=== PATIENT | male | born 1990 | race Hispanic/Latino ===

== ENCOUNTER 2017-11-21 22:22 | Emergency (ER) | payer BC, OTHER ==
[~2017-11-21] VITALS: Ht 172.7 cm; Wt 81.6 kg
[2017-11-21] MEDS ORDERED: SODIUM CHLORIDE 0.9% 1000ML 1,000 ML IV STA (23:16)
[2017-11-21 23:30] LABS: BASOPHILS # (AUTO) 0.1 (0.0-0.1); BASOPHILS % 0.9 % (0.0-1.0); EOSINOPHILS # (AUTO) 0.3 (0.0-0.4); EOSINOPHILS % 3.1 % (0.0-6.0); HEMATOCRIT 46.9 % (38.2-49.6); HEMOGLOBIN 15.7 g/dL (14.0-18.0); MEAN CORPUSCULAR HEMOGLOBIN 28.6 pg (28-32); MEAN CORPUSCULAR HGB CONC 33.5 g/dL (31-35); MEAN CORPUSCULAR VOLUME 85.4 fL (81-99); MONOCYTES # (AUTO) 0.7 (0.2-0.8); MONOCYTES % 6.9 % (4.4-11.3); NEUTROPHILS % 58.7 % (38.7-80.0); PLATELET COUNT 239 x10e3/uL (140-360); RED BLOOD COUNT 5.49 x10e6/uL (4.3-5.7); RED CELL DISTRIBUTION WIDTH 12.4 % (11.7-14.4)
[2017-11-21 23:41] LABS: INR 1.01; PROTHROMBIN TIME 12.5 seconds (11.9-14.5)
[2017-11-21 23:42] LABS: PARTIAL THROMBOPLASTIN TIME 30.6 seconds (23.8-35.5)
[2017-11-21 23:49] LABS: ALANINE AMINOTRANSFERASE 69 IU/L (0-55); ALBUMIN 4.2 g/dL (3.5-5.0); ALBUMIN/GLOBULIN RATIO 0.9 (0.8-2.0); ALKALINE PHOSPHATASE 114 IU/L (40-150); ANION GAP 13.9 mmol/L (8-16); BLOOD UREA NITROGEN 12 mg/dL (7-26); BUN/CREATININE RATIO 10 (6-25); CALCIUM 9.1 mg/dL (8.4-10.2); CARBON DIOXIDE 27 mmol/L (22-29); CHLORIDE 104 mmol/L (98-107); CREATINE KINASE 123 IU/L (30-200); CREATININE, SERUM 1.25 mg/dL (0.72-1.25); EST GLOMERULAR FILTRATION RATE > 60 ML/MIN (60-); GLUCOSE 105 mg/dL (74-118); MAGNESIUM 2.1 MG/DL (1.3-2.1); POTASSIUM 3.9 mmol/L (3.5-5.1); SODIUM 141 mmol/L (136-145)
--- NOTE | 2017-11-22 00:03 | Diagnostic Imaging Report ---
CHEST 2 VIEWS, Technique: CHEST 2 VIEWS Comparison: None Clinical history: Tachycardia DISCUSSION: Low lung volumes result in bibasilar vascular crowding/atelectasis. Otherwise normal appearance of the heart, mediastinum, lungs and pleural spaces. IMPRESSION: Low lung volumes without acute abnormality Signed by: Dr Dora Shaffer MD on 11/21/2017 11:59 PM
[2017-11-22 00:09] LABS: THYROID STIMULATING HORMONE 2.613 uIU/mL (0.350-4.940)
[2017-11-22 00:16] LABS: BILIRUBIN,URINE NEGATIVE (NEGATIVE); KETONES,URINE NEGATIVE (NEGATIVE); LEUKOCYTE ESTERASE ,URINE NEGATIVE (NEGATIVE); NITRITE,URINE NEGATIVE (NEGATIVE); PROTEIN,URINE DIPSTICK NEGATIVE (NEGATIVE); URINE UROBILINOGEN 0.2 mg/dL (0.2 - 1)
[2017-11-22 00:17] LABS: CLARITY,URINE CLEAR (CLEAR); COLOR,URINE YELLOW (YELLOW)
[2017-11-22 00:20] LABS: AMPHETAMINES SCREEN,URINE NEGATIVE (NEGATIVE); BENZODIAZEPINES SCREEN,URINE NEGATIVE (NEGATIVE); PHENCYCLIDINE SCREEN,URINE NEGATIVE (NEGATIVE)
[2017-11-22 00:27] LABS: BACTERIA,URINE RARE /HPF; EPITHELIAL CELLS,URINE RARE /LPF; WBC,URINE (MAN) 0-5 /HPF (0-5)
== END 2017-11-22 02:05 | disposition home or self-care (01) ==
LOC: ER 22:22
DX: R00.2 Palpitations (principal)
CPT/HCPCS: 36415; 71046; 80053; 80307; 81001; 82550; 82553; 83735; 83880; 84443; 84484; 85025; 85379; 85610; 85730; 87086; 87400; 93005; 99284; J7030

== ENCOUNTER 2018-02-10 03:21 | Emergency (ER) | payer BC ==
[~2018-02-10] VITALS: Ht 172.7 cm; Wt 81.6 kg
--- OUTSIDE RECORDS SUMMARY | 2018-02-10 03:23 | XMS REPORT ---
[facility] Address Unknown Phone Unavailable Care Team Providers Care Mechanical Designer Name Role Phone JULIA DOWELL Unavailable Unavailable Problems This patient has no known problems. Allergies, Adverse Reactions, Alerts This patient has no known allergies or adverse reactions. Medications This patient has no known medications. Results Test Description Test Time Test Comments Text Results Atomic Results Result Comments CHEST [address] [address] Patient Name: LAWRENCE FROST MR #: [id number] : 1990 Age/Sex: 27/M Req #: [id number] Adm Physician: Ordered by: JULIA DOWELL MD Report #: [id number] Location: ER Room/Bed: Procedure: [id number] DX/CHEST 2 VIEWS Exam Date: 11/21/17 Exam Time: 4 REPORT STATUS: Signed CHEST 2 VIEWS, Technique: CHEST 2 VIEWS Comparison: None Clinical history: Tachycardia DISCUSSION: Low lung volumes result in bibasilar vascular crowding/atelectasis. Otherwise normal appearance of the heart, mediastinum, lungs and pleural spaces. IMPRESSION: Low lung volumes without acute abnormality Signed by: Dr Saige Shaffer MD on 11/21/2017 11:59 PM Dictated By: SAIGE SHAFFER MD [id number] Transcribed By: OJ on 11/21/17 3256 COPY TO: JULIA DOWELL MD
--- OUTSIDE RECORDS SUMMARY | 2018-02-10 03:23 | XMS REPORT | Continuity of Care Document ---
Author Author [facility] Organization [facility] Address [address] [place] [address] Phone Unavailable Care Team Providers Care Social Service Agency Director Name Role Phone JULIETH MCCANN DO PCP Insurance Providers Guarantor Lawrence Warren Address [address] [facility] [facility] [address] [place] [address] Email [email or web address] [facility] Policy Number [id number] Subscriber's Name Lawrence Warren Relationship 18 Self / Same As Patient Advance Directives Directive Response Recorded Date/Time Does the patient have an advance directive? No 06/27/15 9:59am If yes, is advance directive on file with [facility]? No 06/27/15 9:59am If not on file with [facility] will patient provide a copy? Yes 11/22/17 1:45am Do you have a Directive to Physician? No 11/22/17 1:45am Do you have a Medical Power of Well Logging Operator [employer]? No 11/22/17 1:45am Do you have an out of hospital Do Not Resuscitate Order? No 11/22/17 1:45am Do you have any special needs we should be aware of? No 11/22/17 1:45am Do you have a support person here with you today? Yes 11/22/17 1:45am Did patient receive Notice of Privacy Practices? Yes 11/22/17 1:45am Did patient receive patient rights and responsibilities? Yes 11/22/17 1:45am Problems No problem information available. Medications No known medications. Social History Smoking Status Start Date Stop Date Never Smoker Hospital Discharge Instructions No hospital discharge instruction information available. Plan of Care Discharge Date 11/22/17 2:05am Disposition HOME, SELF-CARE Condition at Discharge Stable Instructions/Education Provided Heart Palpitations Forms Provided Work/School Excuse Prescriptions See Medication Section Additional Instructions/Education AVOID STIMULANTS LIKE CAFFEINE AND NICOTINE FOLLOW UP WITH YOUR PRIMARY CARE DOCTOR CALL FOR APPT Functional Status No functional status information available. Allergies, Adverse Reactions, Alerts No known allergies. Immunizations No immunization information available. Vital Signs Acute Vital Signs Vital Response Date/Time Pulse Pulse Rate (adult) 81 bpm (60 - 90) 11/22/2017 1:45am Respiratory Rate 18 bpm (12 - 24) 11/22/2017 1:45am Height 5 ft 8 in 11/21/2017 10:28pm Weight 180 lb 11/21/2017 10:28pm Body Mass Index 27.4 kg/m^2 11/21/2017 10:28pm Results Laboratory Results Test Name Result Units Flags Reference Collection Date/Time Result Date/ Time Comments White Blood Count 10.15 x10e3/uL 4.8-10.8 11/21/2017 11:28pm 2017 11:32pm Red Blood Count 5.49 x10e6/uL 4.3-5.7 11/21/2017 11:28pm 11/21/2017 11: 32pm Hemoglobin 15.7 g/dL 14.0-18.0 11/21/2017 11:2811/21/2017 11:32pm Hematocrit 46.9 % 38.2-49.6 11/21/2017 11:2811/21/2017 11:32pm Mean Corpuscular Volume 85.4 fL 81-99 11/21/2017 11:28pm 11/21/2017 11: 32pm Mean Corpuscular Hemoglobin 28.6 pg 28-32 11/21/2017 11:28pm 2017 11:32pm Mean Corpuscular Hemoglobin Concent 33.5 g/dL 31-35 11/21/2017 11:28pm 11/21/2017 11:32pm Red Cell Distribution Width 12.4 % 11.7-14.4 11/21/2017 11:2017 11:32pm Platelet Count 239 x10e3/uL 140-360 11/21/2017 11:11/21/2017 11: 32pm Neutrophils (%) (Auto) 58.7 % 38.7-80.0 11/21/2017 11:11/21/2017 11:32pm Lymphocytes (%) (Auto) 30.0 % 18.0-39.1 11/21/2017 11:11/21/2017 11:32pm Monocytes (%) (Auto) 6.9 % 4.4-11.3 11/21/2017 11:11/21/2017 11: 32pm Eosinophils (%) (Auto) 3.1 % 0.0-6.0 11/21/2017 11:11/21/2017 11: 32pm Basophils (%) (Auto) 0.9 % 0.0-1.0 11/21/2017 11:11/21/2017 11: 32pm IM GRANULOCYTES % 0.4 % 0.0-1.0 11/21/2017 11:11/21/2017 11:32pm Neutrophils # (Auto) 6.0 2.1-6.9 11/21/2017 11:11/21/2017 11: 32pm Lymphocytes # (Auto) 3.0 1.0-3.2 11/21/2017 11:11/21/2017 11: 32pm Monocytes # (Auto) 0.7 0.2-0.8 11/21/2017 11:11/21/2017 11:32pm Eosinophils # (Auto) 0.3 0.0-0.4 11/21/2017 11:11/21/2017 11: 32pm Basophils # (Auto) 0.1 0.0-0.1 11/21/2017 11:11/21/2017 11:32pm Absolute Immature Granulocyte (auto 0.04 x10e3/uL 0-0.1 11/21/2017 11: 11/21/2017 11:32pm Prothrombin Time 12.5 seconds 11.9-14.5 11/21/2017 11:28pm 11/21/2017 11:44pm Prothromb Time International Ratio 1.01 11/21/2017 11:28pm 2017 11:44pm Oral Anticoagulant Therapy INR Values: 1. Low Intensity Therapy 1.5 - 2.0 2. Moderate Intensity Therapy 2.0 - 3.0 3. High Intensity Therapy(1) 2.5 - 3.5 4. High Intensity Therapy(2) 3.0 - 4.0 5. Panic Value INR > 5.0 Activated Partial Thromboplast Time 30.6 seconds 23.8-35.5 11/21/2017 11 :28pm 11/21/2017 11:44pm D-Dimer Quantitative (PE/DVT) 0.20 ug/mLFEU 0.00-0.45 11/21/2017 11: 28pm 11/21/2017 11:44pm Urine Color YELLOW YELLOW 11/22/2017 12:00am 11/22/2017 12:17am Urine Clarity CLEAR CLEAR 11/22/2017 12:00am 11/22/2017 12:17am Urine Specific [place] 1.015 1.010-1.025 11/22/2017 12:00am 2017 12:17am Urine pH 6.5 5 - 7 11/22/2017 12:00am 11/22/2017 12:17am Urine Leukocyte Esterase NEGATIVE NEGATIVE 11/22/2017 12:00am 2017 12:17am Urine Nitrite NEGATIVE NEGATIVE 11/22/2017 12:00am 11/22/2017 12: 17am Urine Protein NEGATIVE NEGATIVE 11/22/2017 12:00am 11/22/2017 12: 17am Urine Glucose (UA) NEGATIVE NEGATIVE 11/22/2017 12:00am 11/22/2017 12 :17am Urine Ketones NEGATIVE NEGATIVE 11/22/2017 12:00am 11/22/2017 12: 17am Urine Opiates Screen NEGATIVE NEGATIVE 11/22/2017 12:00am 11/22/2017 12:20am Urine Barbiturates Screen NEGATIVE NEGATIVE 11/22/2017 12:00am 2017 12:20am Urine Phencyclidine Screen NEGATIVE NEGATIVE 11/22/2017 12:00am 11/22 12:20am Urine Amphetamines Screen NEGATIVE NEGATIVE 11/22/2017 12:00am 2017 12:20am Urine Methamphetamines Screen NEGATIVE NEGATIVE 11/22/2017 12:00am 12:20am Urine Benzodiazepines Screen NEGATIVE NEGATIVE 11/22/2017 12:00am 12:20am Urine Cocaine Screen NEGATIVE NEGATIVE 11/22/2017 12:00am 11/22/2017 12:20am Urine Cannabinoids Screen NEGATIVE NEGATIVE 11/22/2017 12:00am 2017 12:20am THESE RESULTS ARE FOR MEDICAL TREATMENT ONLY *THIS REPORT CONTAINS UNCONFIRMED SCREENING RESULTS* POSITIVE RESULTS WILL BE CONFIRMED BY REFERENCE LAB UPON REQUEST CUT-OFF DRUG CLASS CONCENTRATION ng/mL Amphetamines 1000 Methamphetamines 1000 Cocaine 300 Opiate 300 Phencyclidine 25 Cannabinoid 50 Barbiturates 300 Benzodiazepine 300 Methadone 300 Urine Methadone Screen NEGATIVE NEGATIVE 11/22/2017 12:00am 2017 12:20am THESE RESULTS ARE FOR MEDICAL TREATMENT ONLY *THIS REPORT CONTAINS UNCONFIRMED SCREENING RESULTS* POSITIVE RESULTS WILL BE CONFIRMED BY REFERENCE LAB UPON REQUEST CUT-OFF DRUG CLASS CONCENTRATION ng/mL Amphetamines 1000 Methamphetamines 1000 Cocaine Metabolite 300 Opiate 300 Phencyclidine 25 Cannabinoid 50 Barbiturates 300 Benzodiazepine 300 Methadone 300 Urine Urobilinogen 0.2 mg/dL 0.2 - 1 11/22/2017 12:00am 11/22/2017 12: 17am Urine Bilirubin NEGATIVE NEGATIVE 11/22/2017 12:00am 11/22/2017 12: 17am Urine Blood NEGATIVE NEGATIVE 11/22/2017 12:00am 11/22/2017 12:17am Urine WBC 0-5 /HPF 0-5 11/22/2017 12:00am 11/22/2017 12:27am Urine RBC NONE /HPF 0-5 11/22/2017 12:00am 11/22/2017 12:27am Urine Bacteria RARE /HPF NONE 11/22/2017 12:00am 11/22/2017 12:27am Urine Epithelial Cells RARE /LPF NONE 11/22/2017 12:00am 11/22/2017 12: 27am Sodium Level 141 mmol/L 136-145 11/21/2017 11:28pm 11/21/2017 11:51pm Potassium Level 3.9 mmol/L 3.5-5.1 11/21/2017 11:28pm 11/21/2017 11: 51pm Chloride Level 104 mmol/L 98-107 11/21/2017 11:28pm 11/21/2017 11:51pm Influenza Virus Types A,B Antigen NEGATIVE NEGATIVE 11/21/2017 11: 11/21/2017 11:48pm Carbon Dioxide Level 27 mmol/L -11/21/2017 11:2811/21/2017 11: 51pm Anion Gap 13.9 mmol/L 8-16 11/21/2017 11:28pm 11/21/2017 11:51pm Blood Urea Nitrogen 12 mg/dL 7-11/21/2017 11:11/21/2017 11: 51pm Creatinine 1.25 mg/dL 0.72-1.25 11/21/2017 11:28pm 11/21/2017 11:51pm BUN/Creatinine Ratio 10 611/21/2017 11:2811/21/2017 11:51pm Estimat Glomerular Filtration Rate > 60 ML/MIN 60- 11/21/2017 11:28pm 11/21/2017 11:51pm Ranges were taken from the National Kidney Disease Education Program and the National Kid[employer] Foundation literature. Reference ranges: 60 or greater: Normal 16-59 (for 3 consecutive months): Chronic kidney disease 15 or less: Kidney failure Glucose Level 105 mg/dL 74-118 11/21/2017 11:28pm 11/21/2017 11:51pm Calcium Level 9.1 mg/dL 8.4-10.2 11/21/2017 11:28pm 11/21/2017 11:51pm Magnesium Level 2.1 MG/DL 1.3-2.1 11/21/2017 11:11/21/2017 11: 51pm Total Bilirubin 0.4 mg/dL 0.2-1.2 11/21/2017 11:2811/21/2017 11: 51pm Aspartate Amino Transf (AST/SGOT) 41 IU/L H 5-34 11/21/2017 11:28pm 11:51pm Alanine Aminotransferase (ALT/SGPT) 69 IU/L H 0-55 11/21/2017 11:28pm 11:51pm Total Protein 8.8 g/dL H 6.5-8.1 11/21/2017 11:11/21/2017 11:51pm Albumin 4.2 g/dL 3.5-5.0 11/21/2017 11:28pm 11/21/2017 11:51pm Globulin 4.6 g/dL H 2.3-3.5 11/21/2017 11:28pm 11/21/2017 11:51pm Albumin/Globulin Ratio 0.9 0.8-2.0 11/21/2017 11:28pm 11/21/2017 11: 51pm Alkaline Phosphatase 114 IU/L 40-150 11/21/2017 11:28pm 11/21/2017 11: 51pm B-Type Natriuretic Peptide < 10.0 pg/mL 0-100 11/21/2017 11:28pm 2017 11:55pm Creatine Kinase 123 IU/L 30-200 11/21/2017 11:28pm 11/21/2017 11:51pm Creatine Kinase MB 0.50 ng/mL 0.00-5.00 11/21/2017 11:28pm 11/22/2017 12:12am Troponin I < 0.001 ng/mL 0-0.300 11/21/2017 11:28pm 11/22/2017 12:12am Thyroid Stimulating Hormone (TSH) 2.613 uIU/mL 0.350-4.940 11/21/2017 11 :28pm 11/22/2017 12:12am Procedures Procedure Status Date Provider(s) X-ray of chest, two views Active 11/21/17 JULIA DOWELL MD Encounters Encounter Location Arrival/Admit Date Discharge/Depart Date Attending Provider Departed Emergency Room [facility] 11/21/17 10:22pm 11/22 2:05am JULIA DOWELL MD
== END 2018-02-10 04:37 | disposition home or self-care (01) ==
LOC: ER 03:21
DX: M54.5 Low back pain (principal); S33.5XXA Sprain of ligaments of lumbar spine, initial encounter; S39.012A Strain of muscle, fascia and tendon of lower back, initial encounter; X50.1XXA Overexertion from prolonged static or awkward postures, initial encounter; Y92.008 Other place in unspecified non-institutional (private) residence as the place of occurrence of the external cause
CPT/HCPCS: 99282